=== PATIENT | female | born 1980 | race Caucasian/White ===

== ENCOUNTER 2017-07-04 13:46 | Day surgery (SDC) | payer OTHER ==
[~2017-07-04] VITALS: Ht 175.3 cm; Wt 60.7 kg
[~2017-07-04 13:46] MED LIST: BIRTH CONTROL PO; SPRINTEC1 EACH PO
[2017-07-04 14:39] VITALS: BP 123/79
[2017-07-04] MEDS ORDERED: NORCO 5/3251 TABLET PO (18:31)
[2017-07-04 20:25] VITALS: BP 123/86
[2017-07-04 21:02] VITALS: BP 112/73
== END 2017-07-04 21:07 | disposition home or self-care (01) ==
LOC: SDC 13:46
PROC: 0DTJ4ZZ Resection of Appendix, Percutaneous Endoscopic Approach (ICD-10-PCS; principal; 2017-07-04)
DX: K35.80 Unspecified acute appendicitis (principal)
CPT/HCPCS: 88304; J0131; J1100; J1170; J1885; J2250; J2405; J2710; J3010; S0020; S0074